=== PATIENT | female | born 1990 | race Caucasian/White ===

== ENCOUNTER 2022-05-07 18:09 | Inpatient (IN) | payer BC, SELFPAY ==
[2022-05-07] VITALS (42 sets, daily range): BP systolic 92–142; BP diastolic 57–102; PULSE 64–128; RESP 16–18; TEMP 36.6–37.3; O2SAT 95–100; BMI 27.8
[2022-05-07 18:32] LABS: Basophils Percent Auto 0.3 % (0.2-1.2); Eosinophils Absolute Auto 0.1 K/mm3 (0-0.3); Eosinophils Percent Auto 0.9 % (0-4.4); Hemoglobin 13.2 g/dL (12.0-15.0); Immature Granulocyte Absolute 0.06 K/mm3 (0.00-0.031); Immature Granulocyte Percent A 0.4 % (0-0.5); Lymphocytes Absolute Auto 2.56 K/mm3 (0.9-3.2); Lymphocytes Percent Auto 18.3 % (18.3-44.2); Mean Corpuscular HGB Conc 34.7 g/dl (32-36); Mean Corpuscular Hemoglobin 33.5 pg (26-34); Mean Corpuscular Volume 96.4 fl (80-100); Mean Platelet Volume 10.6 fl (7.4-10.4); Monocytes Percent Auto 7.1 % (2.6-8.5); Neutrophils Absolute Auto 10.2 K/mm3 (1.3-6.7); Platelet Count Result 329 k/mm3 (150-375); Red Blood Count 3.94 M/mm3 (4.2-5.4); Red Cell Distribution Width 13.2 % (11.5-14.5)
--- NOTE | 2022-05-07 18:40 | LDADM ---
This patient, Julia Hatch, was admitted to Labor/Delivery/Recovery 106 on 05/07/22 at 17:30. Plans for labor, pain management and were discussed with patient. Patient/family oriented to hospital policies and general routines including ID bracelet, bed and alarms, visiting hours, pain management, procedures, bathroom and other care routines, personal items, smoking policy, room service/diet and guest tray routines, security routines, and visiting hours. Patient/Family are encouraged to report perceived risks to care and to ask questions if they do not understand what they are told or what they should do. See OBIX for further documentation.
--- NOTE | 2022-05-07 19:26 | WPDOBADMIT ---
Obstetrics - Admit Note Admission Note: record reviewed. No pertinent additions to the history and/or any subsequent changes in the physical findings that are not consistent with the expected course of the were found. pt admitted for r/o rupture. SROM 05/06, plan antibiotics and augment labor, sve /-1 per RN Additions to the history and/or subsequent changes in the physical findings follow. None.
[2022-05-07] MEDS: LACTATED RINGERS 1,000 ML 125 ML IV CONT (19:30)
[2022-05-07] MEDS: CLINDAMYCIN 900 MG/D5W 50 ML 900 MG/50 ML PIGGYBACK 50 MG IVPB (19:31)
[2022-05-07 20:07] LABS: Estimated CRCL calculation 100 ml/min; Estimated Glomerular Filt Rate > 60
[2022-05-07] MEDS: GENTAMICIN 60 MG/50 ML NS 60 MG/50 ML BAG 100 MG IVPB (20:21)
[2022-05-07] MEDS: OXYTOCIN 30 UNITS/NS 500 ML 30 UNITS/500 ML BAG 6 UNITS IV CONT (20:22)
--- NOTE | 2022-05-07 20:27 | WPDANESEPP ---
Anes - Eval Pre Procedure Procedure: Labor Epidural Date/Time: 05/07/22 20:27 Surgeon: Allegra Preop Diagnosis: Labor Pain Pre Op Diagnosis: LABOR Patient Data Age: 31 Gender: F Height: 1.63 m Weight: 73.5 kg Last Vital Signs Temp 37.0 C 05/07/22 18:30 Pulse 84 05/07/22 20:26 Resp 16 05/07/22 18:30 BP 126/77 05/07/22 20:26 O2 Del Method Room Air 05/07/22 18:38 Allergies Allergy/AdvReac Type Severity Reaction Status Date / Time Penicillins Allergy Hives Verified 04/25/22 12:34 Sulfa (Sulfonamide Allergy Unknown Verified 04/25/22 12:34 Antibiotics) Home Medications Medication Instructions Recorded Confirmed Type Classic 1 tab-cap PO DAILY 04/25/22 04/25/22 History nystatin-triamcinolone 1 dose vaginal DAILY PRN Itching 04/25/22 04/25/22 History Laboratory Tests 05/07/22 05/07/22 05/07/22 18:15 18:15 18:15 WBC 14.0 K/mm3 H K/mm3 (4.5-10.0) RBC 3.94 M/mm3 L M/mm3 (4.2-5.4) Hgb 13.2 g/dL g/dL (12.0-15.0) Hct 38.0 % % (37.0-47.0) MCV 96.4 fl fl (80-100) MCH 33.5 pg pg (26-34) MCHC 34.7 g/dl g/dl (32-36) RDW 13.2 % % (11.5-14.5) Plt Count 329 k/mm3 k/mm3 (150-375) MPV 10.6 fl H fl (7.4-10.4) Immature Gran % (Auto) 0.4 % % (0-0.5) Neut % (Auto) 73.0 % % (45.5-73.1) Lymph % (Auto) 18.3 % % (18.3-44.2) [place] % (Auto) 7.1 % % (2.6-8.5) Eos % (Auto) 0.9 % % (0-4.4) Baso % (Auto) 0.3 % % (0.2-1.2) Lymph # (Auto) 2.56 K/mm3 K/mm3 (0.9-3.2) [place] # (Auto) 1.0 K/mm3 H K/mm3 (0.1-0.6) Eos # (Auto) 0.1 K/mm3 K/mm3 (0-0.3) Baso # (Auto) 0.0 K/mm3 K/mm3 (0.0-0.1) Abs Immat Gran (auto) 0.06 K/mm3 H K/mm3 (0.00-0.031) Absolute Neuts (auto) 10.2 K/mm3 H K/mm3 (1.3-6.7) Absolute Nucleated RBC 0.0 K/mm3 K/mm3 (0.0-0.012) Nucleated RBC % 0.0 % % (0.0-0.2) Creatinine Estim Creat Clear Calc Estimated GFR RPR Pending Blood Type O Positive Antibody Screen Negative 05/07/22 19:12 WBC RBC Hgb Hct MCV MCH MCHC RDW Plt Count MPV Immature Gran % (Auto) Neut % (Auto) Lymph % (Auto) [place] % (Auto) Eos % (Auto) Baso % (Auto) Lymph # (Auto) [place] # (Auto) Eos # (Auto) Baso # (Auto) Abs Immat Gran (auto) Absolute Neuts (auto) Absolute Nucleated RBC Nucleated RBC % Creatinine 0.70 mg/dL mg/dL (0.7-1.0) Estim Creat Clear Calc 100 ml/min ml/min Estimated GFR > 60 (59 - ) RPR Blood Type Antibody Screen Patient hx anesthesia problems: none Family hx anesthesia problems: none Results Review: All pre-operative results and documents have been reviewed as part of the pre-operative evaluation. [facility] Family History Family History Other Unknown family medical history Social History Social History Smoking status: Never smoker Substance use: never Lack of Transportation: No Lack of Food: Never True Current Housing: I Have Housing Concerned About Future Housing: No Difficulty Paying Gas/Electric Bills: No Difficulty Paying for Meds: No Currently Unemployed: No Education: Bachelor's Degree Difficulty w/ Childcare or Family Care: No Spiritual care concerns: No Exam Day of Procedure 05/07/22 20:27
--- NOTE | 2022-05-07 22:56 | WPDANESEPN ---
Anes - Epidural Procedure Note Date/Time: 05/07/22 22:56 Consent: I have discussed with the patient/family/POA, the placement of an epidural catheter and the use of epidural narcotic/local anesthetic for labor analgesia and/or postoperative pain management, including associated potential risks, benefits, complications and side effects. I have discussed alternative methods of labor analgesia and/or postoperative pain management. The patient/family/POA, understand(s) and wish(es) to proceed with epidural narcotic/local anesthetic for labor analgesia and/or postoperative pain management. Time-Out: A pre-procedural Time-Out was completed immediately before starting the procedure and confirmed: Patient Identification, Site, Procedure, Patient Position and the Availability of Requisite Equipment. Clinical Indications: Labor pain Epidural Insertion Note Patient position: sitting Skin prep: chlorhexidine and sterile drape Needle: 18g Tuohy-Schliff Catheter: 20g Unstyleted Technique: Loss of resistance. Level of insertion: L4/5 Catheter skin daniel (cm): 6 Length in epidural space (cm): 11 Skin anesthesia: other (lidocaine 2%) Test dose: 1.5% Lidocaine with [id number] Epi, negative for subarachnoid Inj and negative for intravascular Inj Time of test dose: 22:35 Observations: tolerated well Complications: none
--- NOTE | 2022-05-07 22:58 | WPDANESEPPF ---
Anes - Initial Pre Proc Eval Procedure: Labor epidural Date/Time: 05/07/22 22:58 Surgeon: Sis Dinh MD Pre Op Diagnosis: labor pain Pre Op Diagnosis: LABOR Patient Data Age: 31 Gender: F Height: 1.63 m Weight: 73.5 kg Last Vital Signs Temp 36.6 C 05/07/22 22:47 Pulse 64 05/07/22 22:58 Resp 18 05/07/22 20:30 BP 122/102 H 05/07/22 22:58 Pulse Ox 98 05/07/22 22:55 O2 Del Method Room Air 05/07/22 18:38 Allergies Allergy/AdvReac Type Severity Reaction Status Date / Time Penicillins Allergy Hives Verified 04/25/22 12:34 Sulfa (Sulfonamide Allergy Unknown Verified 04/25/22 12:34 Antibiotics) Home Medications Medication Instructions Recorded Confirmed Type Classic 1 tab-cap PO DAILY 04/25/22 04/25/22 History nystatin-triamcinolone 1 dose vaginal DAILY PRN Itching 04/25/22 04/25/22 History Laboratory Tests 05/07/22 05/07/22 05/07/22 18:15 18:15 18:15 WBC 14.0 K/mm3 H K/mm3 (4.5-10.0) RBC 3.94 M/mm3 L M/mm3 (4.2-5.4) Hgb 13.2 g/dL g/dL (12.0-15.0) Hct 38.0 % % (37.0-47.0) MCV 96.4 fl fl (80-100) MCH 33.5 pg pg (26-34) MCHC 34.7 g/dl g/dl (32-36) RDW 13.2 % % (11.5-14.5) Plt Count 329 k/mm3 k/mm3 (150-375) MPV 10.6 fl H fl (7.4-10.4) Immature Gran % (Auto) 0.4 % % (0-0.5) Neut % (Auto) 73.0 % % (45.5-73.1) Lymph % (Auto) 18.3 % % (18.3-44.2) [place] % (Auto) 7.1 % % (2.6-8.5) Eos % (Auto) 0.9 % % (0-4.4) Baso % (Auto) 0.3 % % (0.2-1.2) Lymph # (Auto) 2.56 K/mm3 K/mm3 (0.9-3.2) [place] # (Auto) 1.0 K/mm3 H K/mm3 (0.1-0.6) Eos # (Auto) 0.1 K/mm3 K/mm3 (0-0.3) Baso # (Auto) 0.0 K/mm3 K/mm3 (0.0-0.1) Abs Immat Gran (auto) 0.06 K/mm3 H K/mm3 (0.00-0.031) Absolute Neuts (auto) 10.2 K/mm3 H K/mm3 (1.3-6.7) Absolute Nucleated RBC 0.0 K/mm3 K/mm3 (0.0-0.012) Nucleated RBC % 0.0 % % (0.0-0.2) Creatinine Estim Creat Clear Calc Estimated GFR RPR Pending Blood Type O Positive Antibody Screen Negative 05/07/22 19:12 WBC RBC Hgb Hct MCV MCH MCHC RDW Plt Count MPV Immature Gran % (Auto) Neut % (Auto) Lymph % (Auto) [place] % (Auto) Eos % (Auto) Baso % (Auto) Lymph # (Auto) [place] # (Auto) Eos # (Auto) Baso # (Auto) Abs Immat Gran (auto) Absolute Neuts (auto) Absolute Nucleated RBC Nucleated RBC % Creatinine 0.70 mg/dL mg/dL (0.7-1.0) Estim Creat Clear Calc 100 ml/min ml/min Estimated GFR > 60 (59 - ) RPR Blood Type Antibody Screen Patient hx anesthesia problems: none Family hx anesthesia problems: none Results Review: All pre-operative results and documents have been reviewed as part of the pre-operative evaluation. [facility] Family History Family History Other Unknown family medical history Social History Social History Smoking status: Never smoker Substance use: never Lack of Transportation: No Lack of Food: Never True Current Housing: I Have Housing Concerned About Future Housing: No Difficulty Paying Gas/Electric Bills: No Difficulty Paying for Meds: No Currently Unemployed: No Education: Bachelor's Degree Difficulty w/ Childcare or Family Care: No Spiritual care concerns: No Anes - Eval Final PreProcedure Day of Procedure 05/07/22 22:58 Patient weight: normal Lungs: clear to auscultation and normal air movement Airway: Mallampati scale class II ASA classification: II Emerg
[2022-05-08] VITALS (38 sets, daily range): BP systolic 89–129; BP diastolic 56–84; PULSE 65–188; RESP 16–18; TEMP 36.4–37.6; O2SAT 95–100
[2022-05-08] MEDS: ONDANSETRON INJ 4 MG/2 ML VIAL IV PUSH (00:01)
--- NOTE | 2022-05-08 01:28 | PM.OBPRVD ---
OB - Delivery Note Procedure Delivery date: 05/08/22 Procedure: Events: Other (prolonged rupture of membranes) Delivery augmentation: Pitocin Delivery monitor: External FHT and External Uterine Route of delivery: Laceration Description: Vaginal Delivery repair: vicryl Specimen: Yes Quantitative Blood Loss (ml): 100 Anesthesia type: Epidural Disposition: Floor [place] Baby Date of : 05/08/22 Time of : 01:10 Weeks of gestation at delivery: 38 Infant gender: Male presentation: vertex position: Left Occiput Anterior Placenta delivery description: Spontaneous Cord Vessel Description: 3 Vessels, Clamped/Cut and Delayed Cord Clamping score one minute: 9 score five minutes: 9 Narrative: mother and baby skin to skin in stable condition
[2022-05-08] MEDS: OXYTOCIN 30 UNITS/NS 500 ML 30 UNITS/500 ML BAG 125 UNITS IV CONT (01:45)
[2022-05-08] MEDS: IBUPROFEN 600 MG TABLET PO ×3 (07:05→18:40)
[2022-05-08] MEDS: MULTIVIT/MIN/PREN/FOL AC/IRON TABLET 1 TAB PO (07:05)
--- NOTE | 2022-05-08 17:01 | PC.NURSE ---
[phone] Introductions were made, then consulted with patient to assess needs related to . Mother led the conversation with her?plans to feed?her infant and the?experience so far. Resources provided for inpatient and outpatient services with mom/baby guide. Mother voiced understanding of information and requests assistance. RN visualizes infants molding, caput and hematoma from delivery. Infant has an asymmetrical mouth. Mother works with her infant with encouragement, education and is encouraged to keep practicing for more comfort. Encouraged understanding of the benefits of skin to skin (demonstrating unwrapping and placing upright on her chest), stimulating with massage touch, changing positions to encourage wakefulness, how to watch for early feeding cues, responsive feeding, feeding on demand (aiming for 8-12 times in 24 hours, about every 2-3 hours), milk production, building/maintaining a milk supply, duration of feeding, signs of adequate intake/output (using the pie demonstration) and how to record on the feeding sheet. Several attempts were made with different positions. Mother has small firm breast and was encouraged to support her breast with the sandwich hold. Mother states infant had breastfed at about 0930 so we made a plan to call for assistance for the next session. [phone] Consulted with patient to assess needs after being called to the room. Mother was STS with her and encouragement was given to stimulate with massage touch, burping and changing positioning for wakefulness to breastfeed. After feeding cues were visualized we reviewed positioning and ear, shoulder, hip alignment, supporting the breast to facilitate a deep latch, asymmetrical latch (off-center), leading with the chin with a big, open, wide gape and body close to mother. Infant latched optimally to the right breast in football position after several attempts. Education given to mother of how to visualize suck/swallow ratios and listen for drinking at the breast. Infant was able to maintain latch without discomfort to mother. Nipple care reviewed with optimal latch and good positioning. Reminding mother of comfort measures of healing with a warm and wet washcloth to rinse breast, then leave open to air-dry as needed. Reviewed good handwashing when or touching the breast/nipples to prevent infection. Resources used to facilitate learning were used with the tool, mom and baby guide. Mother voiced understanding of skin to skin, stimulating with massage touch, responsive feedings, hand expressed colostrum, talking to infant to encourage if it has been 2 -2.5 hours since the start of the last , to call if infant does not latch, or if there is discomfort with . Resources provided for inpatient/outpatient with the mom/baby guide. Parents voiced understanding of information, demonstrated learning and will call if there is a request for assistance. Reported to the primary RN. [phone] Consulted with patient after requested assistance with latching. Mother works well with her infant with encouragement and demonstrates being more comfortable with moving her to different positions. Mother uses skin to skin, stimulating infant with massage touch and position changes. Infant was attempted at the breasts with different positioning, with/without a nipple shield and infant would not suck. Infant at times would open mouth and mother would place a mouthful of breast in the infants mouth but would not make a teat with the breast and did not effectively breastfeed. Mother was encouraged to initiated consistently pumping to stimulate her hormones for milk, hand express and when infant demonstrates feeding cues practice working with to breastfeed. Parents voiced understanding of education, when to call for assistance if latches with pain or doesn't latch to
[2022-05-08] MEDS: ACETAMINOPHEN 325 MG TABLET 650 MG PO (23:03)
[2022-05-09 03:31] LABS: Hematocrit 32.3 % (37.0-47.0); Hemoglobin 11.1 g/dL (12.0-15.0)
[2022-05-09 07:14] VITALS: BP 113/72; PULSE 65; RESP 16; TEMP 36.8; O2SAT 100
--- NOTE | 2022-05-09 07:20 | P.PNOB_ITS ---
OB - PN: Subj Subjective Date/time seen: 05/09/22 07:20 s/p vaginal delivery day 1 OB - PN: Obj Data Labs 05/09/22 03:06 05/07/22 19:12 Labs: Laboratory Results - last 24 hr 05/09/22 03:06 Hgb 11.1 L Hct 32.3 L OB - PN A/P Plan day: 1 Time Spent With Patient Time: Total time spent is greater than 50% in coordination of care (as documented) at patient's floor/unit and/or counseling patient: Review of Systems 2 Review of Systems: All systems reviewed & are unremarkable except as noted in HPI and below Exam Const: General: cooperative, healthy appearing and comfortable
[2022-05-09] MEDS: MULTIVIT/MIN/PREN/FOL AC/IRON TABLET 1 TAB PO (08:30)
[2022-05-09] MEDS: IBUPROFEN 600 MG TABLET PO ×2 (08:30→16:41)
[2022-05-09 12:32] LABS: Rapid Plasma Reagin Non-Reactive (NonReactive)
--- NOTE | 2022-05-09 12:39 | WPDANLDPN2 ---
Anes-Prog Note L&D Date/Time: 05/09/22 12:39 Comfortable throughout: labor and delivery Neuraxial method: epidural Epidural/Spinal procedure site: clean & non-tender Neuro status: Neuro function grossly intact. Cardiovascular status: normal Respiratory status: normal Airway patency: baseline Mental status: baseline Post-Op hydration status: normal Vital Signs: Last Vital Signs Temp 36.8 C 05/09/22 07:14 Pulse 65 05/09/22 07:14 Resp 16 05/09/22 07:14 BP 113/72 05/09/22 07:14 Pulse Ox 100 05/09/22 07:14 O2 Del Method Room Air 05/08/22 04:12 Pain score (VAS): 10 I/O: Intake & Output 05/08/22 05/09/22 05/09/22 23:59 07:59 15:59 Intake Total 510 240 Balance 510 240 Post-procedural complaints: none Patient feedback: Patient satisfied with anesthetic care.
--- NOTE | 2022-05-09 16:03 | PC.NURSE ---
[id number] Consulted with patient to assess needs related to . Mother led conversation with her experience with feeding baby so far. Mother works well with her infant with encouragement. Reviewed working with , supporting breast and how to protect the nipples with an optimal deep latch, good positioning, and good hand washing. Encouraged understanding the benefits of skin to skin, responding to feeding cues, frequencies of feeding 8-12 times in 24 hours (approximately 2-3 hours), duration of feedings, milk production, intake/output feeding sheet and signs of adequate intake encouraging swallowing at the breast. Reviewed positioning and alignment, supporting breast, off-centered (asymmetrical latch) and leading with the chin with big, open, wide gape. Attempts were made to latch to the right breast using cross cradle positioning. RN visualized dimpling and infant was removed from the breast with no need to break suctioning. had opened wide, then rested his mouth on the nipple and was tongue sucking. Infants efforts today are more effective than yesterday and mother was encouraged to keep practicing . [phone] Mother had been initiated with pumping last night. The smallest flange here (21mm) is too big and causes mother pain. Reviewed hand expression with mother and encouraged practicing removing milk every 2-3 hours if doesn't latch. 1/2 tsp of colostrum was expressed and spoon fed to after father of baby pace bottle fed 12mls of formula. Resources used to facilitate learning were used from the tool, mom and baby guide. Mother voiced understanding of the education shared, to call for assistance if the infant does not latch or if there is discomfort with . Reported to the primary RN. [phone] RN responded to a request for assistance to breastfeed. Mother is holding infant after a big poopy diaper change . Infant was placed skin to skin after mother washed her hands. Once feeding cues were visualized was moved to the right breast using football positioning. Mother waited for the big, wide open gape, then brought infant to the breast with guidance while sandwich holding her breast. Reviewed watching and listening to swallowing at the breast. Mother is encouraged to allow infant to breastfeed as long as there's no pain, then place infant skin to skin using massage touch to see if the infant has a burp, then offer the other breast. Mother voiced understanding of when to call for assistance if doesn't latch, needs assistance with latching, doesn't wake to every 2-3 hours, there's pain with latching or any other needs. Reported to the Primary RN.
[2022-05-09 20:00] VITALS: BP 122/78; PULSE 77; RESP 18; TEMP 36.9; O2SAT 100
[2022-05-10] MEDS: IBUPROFEN 600 MG TABLET PO (03:36)
[2022-05-10 08:50] VITALS: BP 115/70; PULSE 61; RESP 16; TEMP 36.4; O2SAT 99
[2022-05-10] MEDS: MULTIVIT/MIN/PREN/FOL AC/IRON TABLET 1 TAB PO (08:53)
[2022-05-10] MEDS: DOCUSATE SODIUM 100 MG CAPSULE PO (08:53)
--- NOTE | 2022-05-10 09:39 | PM.OBPNVD ---
OB - PN: Subj Subjective Date/time seen: 05/10/22 09:39 s/p vaginal delivery day 2 OB - PN: Obj Data Labs 05/09/22 03:06 05/07/22 19:12 Labs: Laboratory Results - last 24 hr 05/07/22 18:15 RPR Non-reactive OB - PN A/P Plan day: 2 Plan: routine care and discharge home Time Spent With Patient Time: Total time spent is greater than 50% in coordination of care (as documented) at patient's floor/unit and/or counseling patient: Review of Systems Review of Systems: All systems reviewed & are unremarkable except as noted in HPI and below Exam Const: General: cooperative, healthy appearing and comfortable
--- NOTE | 2022-05-10 09:41 | PM.OBDSVD ---
DS: Admitting Diagnosis Discharge Date 05/10/22 Admitting Diagnosis SROM, prolonged DS: Discharge Diagnosis Discharge Diagnosis (1) Vaginal delivery: Code(s): O80 - Encounter for full-term uncomplicated delivery Status: Acute OB - DS: Summary OB Procedures : None OB Procedures Intrapartum: Spontaneous Vag Delivery OB Procedures: : None Time Spent with Patient Time attestation: Total time spent providing and/or coordinating discharge services: DS: Data Data Completed and Pending Pending studies at discharge: Pending at discharge 05/08/22 01:14 Surgical [PTH] Routine Labs on day of discharge: Labs from last 24 hours 05/07/22 18:15 RPR Non-reactive Discharge Plan Discharge Attending physician on discharge: Sis Dinh Discharging Clinician: Alejandra Castelan Patient Disposition: Home, Self-Care Activity: pelvic rest Diet: regular Patient Instructions: Antibiotic Form Stand Alone Forms: General Discharge Information Follow-up/Referrals: Alejandra Catselan, CNM [Certified Nurse [employer] Salesperson] - 4 Weeks Discharge Medications: New ibuprofen 600 mg Tablet 600 mg PO Q6H PRN (Reason: Cramping) Qty: 30 0RF Continued Classic 1 tab-cap PO DAILY Discontinued nystatin-triamcinolone 1 dose vaginal DAILY PRN (Reason: Itching) Date of admission: 05/07/22 17:30 Primary Care Provider: PHYSICIAN,AUTOMATIC PINSETTER ADJUSTER Admitting Provider: Sis Dinh Attending physician on admission: Sis Dinh Condition: Stable
--- NOTE | 2022-05-10 11:38 | PC.NURSE ---
Patient viewed the discharge video Mother & Baby Care, The First Two Weeks . Patient was given the opportunity and encouraged to ask questions. Patient verbalized understanding of information shared and has been given the mother/baby guide for home reference.
--- NOTE | 2022-05-10 11:45 | PC.NURSE ---
Discussed with patient that she has ordered a smaller flange size for her breast pump as our size 21 was too large for her and she is continuing to self express when baby is unable to latch and breastfeed.
[2022-05-12 11:46] VITALS: BP 120/81; PULSE 76; RESP 18; TEMP 37.1; O2SAT 100
== END 2022-05-10 16:04 | disposition home or self-care (01) | DRG 806 ==
LOC: ANHLDR 21:23 → ANHOB2 05-10 09:41 → ANHLDR 05-12 10:30 → ANHOB2 05-12 10:30
PROVIDERS: Admitting Provider Obstetrics & Gynecology; Visit Provider Advanced Practice Midwife
DX: O42.92 Full-term premature rupture of membranes, unspecified as to length of time between rupture and onset of labor (principal); O71.4 Obstetric high vaginal laceration alone; Z37.0 Single live birth; O76 Abnormality in fetal heart rate and rhythm complicating labor and delivery; Z3A.38 38 weeks gestation of pregnancy
CPT/HCPCS: 36415; 82565; 84112; 85014; 85018; 85025; 86592; 86850; 86900; 86901; 88307; A9270; J1580; J2405; J2590; J2795; J7120

== ENCOUNTER 2022-06-12 13:06 | Outpatient (RCR) | payer BC, SELFPAY ==
--- NOTE | 2022-05-13 13:50 | PC.NURSE ---
Mother of Eva Hatch In- 1234 Out- 1330 Reason for visit: Latch issues History: mother labor was augmented after SROM (prolonged rupture) along with treatment for GBS positive. Infant History: Delivered vaginally OP compound with both hands presenting at EGA 38 weeks. Cephalohematoma and asymmetrical mouth was assessed while inpatient. Observations: Mother presents with anxiety, states she lacks confidence and talks without pausing much. Encouraged mother to take some slow deep breaths and practice . With encouragement and support latched to the left breast using the cross cradle positioning. Reviewed with mother signs of infant and swallowing at the breast. After an effective 15 minute breastfeed infant was offered the right breast and using the cross cradle positioning breastfed for 5 minutes, then fell asleep. Milk was drooling out of the infants left corner mouth. Mother's breast were firm and are now soft. Encouraged mother to feed often 2-3 hours during the daytime and every 3 at night with one 4-5 hour stretch in a 24 hours time period for . Reviewed pumping if infant doesn't latch protecting her milk supply. Father of is comfortable with pace bottle feeding and states infant drank the whole bottle, all 60mls again. The bottle had 15mls remaining. Discussed with the parents that the breastfed and had 45mls of formula afterwards. Assessed a pumping session for proper flange fit and no pain with pumping. weight: 2740g (6lbs -0.7oz) Lowest weight: 2606g (5lbs-11.9oz) at discharge Last weight: 2680g 5lbs-14.5oz) at the follow up appt. Pre-feed weight: Not done (RN was there to assess pumping flanges and ended up assessing a session) Post-feed weight: Not done Plan of Care: Mother will continue to practice and pumping to protect the milk supply at least 8 times in a 24 hour period with 1-2 times at night. Father of baby helps with paced bottle feeding formula waiting for the breastmilk to come to full volume. Reviewed and/or pumping 8-12 times in 24 hours with 1-2 times at night to protect the milk supply. Mother was encouraged with suggestions of quick foods to grab that are lean protein, fruits and veggies along with staying hydrated. Encouraged resting when the infant rest and leaving other household duties to other trusted family/friends. Follow up plans: Parents plan to bring the infant to [facility] tomorrow for a bili test, then go to the [facility] office for an appt. Mother voiced understanding of when and how to call for assistance.
--- NOTE | 2022-06-12 17:00 | PC.NURSE ---
In-1306 Out-1530 Reason for visit: This is a revisit. Mother is concerned about latching ineffectively, weight loss and supplementation Observations: Mother latches to her breast and infant is not effectively latched. Reviewed using the sandwich hold to assist infant to take in more of a mouthful. Mother lets goes of the sandwich hold. 's mouth is <140-150 degree but slightly >90 degrees. Mother denies pain. Infant demonstrates good rocking jaw movement and swallowing can be visualized and heard. When detached after 23 minutes nipple was misshaped with flattening on the underside of the nipple from the tongue of the infant. Several positions and attempts were made to improve the shape of the nipple to optimal. Mother practices the sandwich hold and different positions to improve the latch to optimal. Encouraged mother how to improve the sandwich hold, patiently wait for to open wide with the tongue down and assist with a big mouthful of breast with chin buried into the breast to protect the nipple. Discussed with mother the different feeding options to improve the weight gain of her infant, build and protect her milk supply. Mother has had six sessions in the last 24 hours with two stated as unsuccessful . Mother is a bit overwhelmed with the responsibilities and demands of a after her has returned to work and coaching. Encouraged mother to take care of her needs and to balance practicing letting other responsibilities wait until father of baby, family or friends can help. Mother states she has a difficult time asking and receiving help. Encouraged calming with skin to skin, attempting to latch well for 15 min, then to supplement infant with breast milk pumped and stored earlier from the refrigerator, take a break and get a drink, food, use the restroom, then do a pumping session for stimulating milk production if didn't effective breastfeed to collect milk for a later feeding. We reviewed practicing optimal , pumping for appropriate stimulation for milk production and balancing efforts and time to care for herself physically, mentally and emotionally while maintaining feeding infant appropriately. We discussed different ways her can help her and to make a list. Encouraged mother to receive help from trusted family and friends that have offered assistance. Reviewed the required amount of feeding varies with a breastfed infant depending if there is 8 -12 feedings versus 6 in a 24 hour period. If infant is going to eat 6-8 times in a 24 hour period, then will require more volume at each feeding than if is feeding 10-12. weight: 6lbs-1 oz Last weight: 06/09/22 7lbs-6oz Pre-feed weight: 7lbs-8.7oz (3423g) Post-feed weight: 7lbs-10.7oz (3480g) 57mls intake in approximately 25 minutes, then was supplemented with 30 mls of formula. Infant burped and was content and sleeping after feeding. Plan of Care: Mother plans to practice , skin to skin, attempting to breastfeed more frequently to improve to 8 stimulations in a 24 hour period. If the infant is refusing, then calm the and attempt for no more than 15 minutes. Suggested attempting a different breast and/or position. Mother was encouraged to increase her pumping stimulations to improve her milk and to feed the infant pumped breast milk and formula supplementation until milk volume increases, is optimal 8-12 times in 24 hours and to maintain infant gaining 1oz a day. Mother also plans to make a list of how her can help and support. Follow up plans: Mother voiced understanding of the education and when to call the [facility] and how to reach out for support. Mother plans to attend the [facility] at [facility]. There is a follow up appt at the [facility] office next week either the or .
== END 2022-08-10 23:59 | disposition home or self-care (01) ==
LOC: ANHOBOP 13:06
PROVIDERS: Visit Provider Pediatrics
DX: Z39.1 Encounter for care and examination of lactating mother (principal)
CPT/HCPCS: 99212; 99214; G0463